=== PATIENT | female | born 1985 | race Caucasian/White ===

== ENCOUNTER 2017-11-04 18:43 | Emergency (ER) | payer OTHER ==
[2017-11-04] MEDS ORDERED: Ketorolac 30 MG/ML SDV IVPUSH ONE (19:18)
[2017-11-04] MEDS ORDERED: Metoclopramide 10 MG/2 ML SDV IV ONE (19:18)
[2017-11-04] MEDS ORDERED: Sodium Chloride 0.9% 1,000 ML IV ONE (19:18)
[2017-11-04] MEDS ORDERED: diphenhydrAMINE 50 MG/ML SDV IVPUSH ONE (19:18)
[2017-11-04] MEDS ORDERED: Ondansetron 4 MG/2 ML SDV IVPUSH ONE (19:18)
--- NOTE | 2017-11-04 19:23 | EDM.PDOC ---
ED HPI GENERAL MEDICAL PROBLEM - General Chief Complaint: Headache Stated Complaint: EXT. HEADACHE Time Seen by Provider: 11/04/17 19:19 Source of Information: Reports: Patient History Limitations: Reports: No Limitations - History of Present Illness INITIAL COMMENTS - FREE TEXT/NARRATIVE: HISTORY AND PHYSICAL: History of present illness: Patient is a 32-year-old female who presents to the emergency room today with complaints of migraine headache 2 weeks. Patient states that when the symptoms started she did follow up with her primary care provider who told her she had a sinus infection and placed her on Bactrim and prednisone. She has been on this medication for the last 5 days and has not felt any improvement. States she has a constant pressure around her scalp, described as a tension headache but then will have intermittent sharp pain to her mid head. She denies any blurred vision , recent head injury, or trauma. Denies any fever, chills, abdominal pain, nausea, vomiting or diarrhea. Denies any alcohol or drug abuse. Denies any history of migraines. No previous head CT's LMP: Currently menstruating Review of systems: As per history of present illness and below otherwise all systems reviewed and negative. Past medical history: As per history of present illness and as reviewed below otherwise noncontributory. Surgical history: As per history of present illness and as reviewed below otherwise noncontributory. Social history: No reported history of drug or alcohol abuse. Family history: As per history of present illness and as reviewed below otherwise noncontributory. Physical exam: Gen.: Well-developed and well-nourished 32-year-old female. Alert and oriented. Nontoxic appearing and in no acute distress. HEENT: Atraumatic, normocephalic, pupils reactive, negative for conjunctival pallor or scleral icterus, mucous membranes moist, TMs normal bilaterally, no sinus tenderness with palpation, throat clear, neck supple, nontender, trachea midline. NO nuchal ridgity or meningeal signs Lungs: Clear to auscultation, breath sounds equal bilaterally, chest nontender. Heart: S1S2, regular rate and rhythm with no overt murmur Abdomen: Soft, nondistended, nontender. Pelvis: Stable nontender. Genitourinary: Deferred. Rectal: Deferred. Extremities: Atraumatic, negative for cords or calf pain. Neurovascular unremarkable. Neuro: Awake, alert, oriented. Cranial nerves II through XII unremarkable. Cerebellum unremarkable. Motor and sensory unremarkable throughout. Exam nonfocal. CT of the head shows no bleeding, fractures or masses. Does indicate that she has a sinusitis. We'll have the patient stop her Bactrim and try Augmentin 1 tab twice a day 10 days. Encouraged her to follow up with her primary care provider late next week for reevaluation. Discussed supportive care measures for home. Diagnostics: CT head Therapeutics: Toradol, Zofran, Reglan, Benadryl, IV fluid, augmentin Impression: #1 Migraine headache #2 Sinusitis Plan: 1. Please stop the Bactrim. Augmentin 1 tab twice daily 10 days. 2. Please take an [id number] decongestant and corticosteriod nasal spray ( Nasonex) for the next 2-3 days and then as needed. 3. Take the mucolytic/pain medication (Guaifensesin/Codiene) as needed for night time use for pain. 3. Please follow up with your primary care provider next week. Return to the ED as needed and as discussed. Definitive disposition and diagnosis as appropriate pending reevaluation and review of above. Duration: Week(s): Location: Reports: Head Improves with: Reports: None Worsens with: Reports: None Associated Symptoms: Reports: Headaches. Denies: Confusion, Chest Pain, Cough, cough w sputum, Diaphoresis, Fever/Chills, Loss of Appetite, Malaise, Nausea/ Vomiting, Rash, Seizure, Shortness of Breath, Syncope, Weakness headache Pain Score (Numeric/FACES): 6 - Related Data Allergies Allergy/AdvReac Type Severity Reaction Status Date / Time No Known Allergies Allergy Verified 11/04/17 18:59 Home Meds: Home Meds Sulfamethoxazole/Trimethoprim [Bactrim Ds Tablet] 1 each PO BID 11/04/17 [ History] predniSONE [Prednisone] 20 mg PO DAILY 11/04/17 [History] Past Medical History - Past Health History Medical/Surgical History: Denies Medical/Surgical History - Infectious Disease History Infectious Disease History: Reports: Chicken Pox Social & Family History - Family History Family Medical History: Noncontributory - Tobacco Use Smoking Status *Q: Never Smoker - Recreational Drug Use Recreational Drug Use: No ED ROS GENERAL - Review of Systems Review Of Systems: ROS reveals no pertinent complaints other than HPI. - Physical Exam Exam: See Below (See dictation) Course - Vital Signs Last Recorded V/S: Last Vital Signs Temp 98.8 F 11/04/17 19:02 Pulse 86 11/04/17 19:02 Resp 14 11/04/17 19:02 BP 116/67 11/04/17 19:02 Pulse Ox 98 11/04/17 19:02 - Orders/Labs/Meds Orders: Active Orders 24 hr Category Date Time Status Head wo Cont [CT] Stat Exams 11/04/17 19:18 Taken Meds: Medications Discontinued Medications Generic Name Dose Route Start Last Admin Trade Name Freq PRN Reason Stop Dose Admin Diphenhydramine HCl 50 mg 11/04/17 19:18 11/04/17 19:33 Benadryl IVPUSH 11/04/17 19:19 50 mg ONETIME ONE Administration Sodium Chloride 1,000 mls @ 999 mls/hr 11/04/17 19:18 11/04/17 19:27 Normal Saline IV 11/04/17 20:18 999 mls/hr STAT ONE Administration Ketorolac Tromethamine 30 mg 11/04/17 19:18 11/04/17 19:29 Toradol IVPUSH 11/04/17 19:19 30 mg ONETIME ONE Administration Metoclopramide HCl 10 mg 11/04/17 19:18 11/04/17 19:32 Reglan IV 11/04/17 19:19 10 mg ONETIME ONE Administration Ondansetron HCl 4 mg 11/04/17 19:18 11/04/17 19:27 Zofran IVPUSH 11/04/17 19:19 4 mg ONETIME ONE Administration Departure - Departure Time of Disposition: 20:40 Disposition: Home, Self-Care 01 Clinical Impression: Migraine Sinusitis Qualifiers: Sinusitis location: maxillary Chronicity: subacute Qualified Code(s): J01.00 - Acute maxillary sinusitis, unspecified - Discharge Information Referrals: PCP,None [Primary Care Provider] - Forms: ED Department Discharge Additional Instructions: My general discharge The following information is given to patients seen in the emergency department who are being discharged to home. This information is to outline your options for follow-up care. We provide all patients seen in our emergency department with a follow-up referral. The need for follow-up, as well as the timing and circumstances, are variable depending upon the specifics of your emergency department visit. If you don't have a primary care physician on staff, we will provide you with a referral. We always advise you to contact your personal physician following an emergency department visit to inform them of the circumstance of the visit and for follow-up with them and/or the need for any referrals to a consulting specialist. The emergency department will also refer you to a specialist when appropriate. This referral assures that you have the opportunity for follow-up care with a specialist. All of these measure are taken in an effort to provide you with optimal care, which includes your follow-up. Under all circumstances we always encourage you to contact your private physician who remains a resource for coordinating your care. When calling for follow-up care, please make the office aware that this follow-up is from your recent emergency room visit. If for any reason you are refused follow-up, please contact the [facility] Emergency Department at and asked to speak to the emergency department charge nurse. [facility] [address] [place] [address] 1. Please stop the Bactrim. Augmentin 1 tab twice daily 10 days. 2. Please take an [id number]-rgbnbhq decongestant and corticosteriod nasal spray ( Nasonex) for the next 3 days, and then as needed. 3. Take the mucolytic/pain medication (Guaifensesin/Codiene) as needed for night time use for pain. 3. Please follow up with your primary care provider next week. Return to the ED as needed and as discussed. - My Orders Last 24 Hours: My Active Orders 11/04/17 19:18 Head wo Cont [CT] Stat - Assessment/Plan Last 24 Hours: My Active Orders 11/04/17 19:18 Head wo Cont [CT] Stat
[2017-11-04] MEDS ORDERED: Amoxicillin/Clavulanate K 875-125 MG Tab PO ONE (20:51)
--- NOTE | 2017-11-05 16:58 | CT ---
EXAM DATE: 11/04/17 PATIENT'S AGE: 32 Patient: CHARLES ATKINSON Facility: [place], [place] Site . Site : 1985 Study: CT Head [id number] 7:56:53 PM Ordering Physician: Doctor Rojas Final Report: INDICATION: Headache. TECHNIQUE: CT head without IV contrast. FINDINGS: Metallic foreign body left nose. Loculated fluid or retention cyst left maxillary sinus. Moderate amount of fluid in the right maxillary sinus with air- fluid level consistent with acute sinusitis. No intracranial hemorrhage, edema, or mass effect. Remainder negative. IMPRESSION: 1. Moderate fluid in the right maxillary sinus with air-fluid level consistent with acute right maxillary sinusitis. Moderate-size retention cyst or loculated fluid left maxillary sinus. 2. No acute intracranial disease. Please note that all CT scans at this facility use dose modulation, iterative reconstruction, and/or weight-based dosing when appropriate to reduce radiation dose to as low as reasonably achievable. Dictated by Omkar Ibarra MD @ Nov 04 2017 7:58PM (Electronic Signature) Report Signed by Proxy. [facility]
== END 2017-11-04 20:50 | disposition home or self-care (01) ==
LOC: MW.ED 18:43
DX: G43.909 Migraine, unspecified, not intractable, without status migrainosus (principal); J01.00 Acute maxillary sinusitis, unspecified; Z79.899 Other long term (current) drug therapy
CPT/HCPCS: 70450; 96361; 96374; 96375; 99284; A9270; J1200; J1885; J2405; J2765; J7040